=== PATIENT | male | born 1940 | race Two or more races ===

== ENCOUNTER 2017-11-24 08:34 | Emergency (ER) | payer OTHER ==
[~2017-11-24] VITALS: Ht 165.1 cm; Wt 77.1 kg
[2017-11-24] MEDS ORDERED: PLAVIX75 MG (08:48)
[2017-11-24] MEDS ORDERED: LOTREL 10-40 M1 EACH (08:48)
[2017-11-24] MEDS ORDERED: PROTONIX40 M1 (08:49)
[2017-11-24] MEDS ORDERED: ASA81 MG (08:49)
[2017-11-24] MEDS ORDERED: TESSALON PERLE100 M1 (08:51)
[2017-11-24] MEDS ORDERED: ZYRTEC10 M3 (08:51)
[2017-11-24] MEDS ORDERED: BENTYL10 MG/1 ML (08:52)
[2017-11-24] MEDS ORDERED: DESPEC DM-G SY473 ML (08:52)
[2017-11-24] MEDS ORDERED: PEPCID20 MG (08:53)
[2017-11-24] MEDS ORDERED: PROMETH-CODEIN 65 ML PO (14:11)
[2017-11-24] MEDS ORDERED: APETIGEN-PLUS1 EACH PO (14:11)
[2017-11-24] MEDS ORDERED: ULTRACET PO (14:11)
[2017-11-24] MEDS ORDERED: PEPCID AC20 MG PO (14:11)
== END 2017-11-24 14:40 | disposition home or self-care (01) ==
LOC: ER 08:34
DX: J11.1 Influenza due to unidentified influenza virus with other respiratory manifestations (principal); R10.32 Left lower quadrant pain